=== PATIENT | male | born 1975 | race Two or more races ===

== ENCOUNTER 2018-02-03 13:34 | Emergency (ER) | payer SELFPAY ==
[~2018-02-03] VITALS: Ht 167.6 cm; Wt 95.0 kg
[2018-02-03 13:38] VITALS: BP 171/102; PULSE 111; RESP 16; TEMP 98.3; O2SAT 98
--- NOTE | 2018-02-03 14:21 | PD ---
HPI Chief Complaint: Hypertension Time Seen by Provider: 14:07 Travel History International Travel<30 days: No Contact w/Intl Traveler<30days: No Traveled to known affect area: No History of Present Illness HPI 42-year-old male presents emergency department with history of hypertension, and need for refill of his lisinopril. Patient states he was started on lisinopril 5 mg once daily for 6 weeks ago, and he took his last one today. He is noted to have blood pressure 170/100 today. He denies headache or other symptoms. He has no other acute medical complaints. He denies allergies to medications. He has no local primary care physician. [facility] Social History Alcohol Use: Yes Tobacco Use: No Substance Use: No Review of Systems Except as stated in HPI: all other systems reviewed are Neg General / Constitutional: No: Fever Eyes: No: Visual changes HENT: No: Headaches Cardiovascular: No: Chest Pain or Discomfort Respiratory: No: Shortness of Breath Gastrointestinal: No: Abdominal Pain Genitourinary: No: Dysuria Musculoskeletal: No: Pain Skin: No Rash Neurologic: No: Weakness Psychiatric: No: Depression Endocrine: No: Polydipsia Hematologic/Lymphatic: No: Easy Bruising Physical Exam Narrative GENERAL: Patient is in no acute distress. SKIN: Warm and dry. Normal color. Normal turgor. HEAD: Atraumatic. Normocephalic. EYES: Pupils equal and round. No scleral icterus. No injection or drainage. ENT: No nasal bleeding or discharge. Mucous membranes pink and moist. NECK: Trachea midline. Supple and nontender. CARDIOVASCULAR: Regular rate and rhythm. RESPIRATORY: No accessory muscle use. Clear to auscultation. Breath sounds equal bilaterally. MUSCULOSKELETAL: Extremities without clubbing, cyanosis, or edema. No obvious deformities. NEUROLOGICAL: Awake and alert. No obvious cranial nerve deficits. Motor grossly within normal limits. Five out of 5 muscle strength in the arms and legs. Normal speech. PSYCHIATRIC: Appropriate mood and affect; insight and judgment normal. Data Data Last Documented VS Vital Signs Date Time Temp Pulse Resp B/P (MAP) Pulse Ox O2 Delivery O2 Flow Rate FiO2 02/03/18 13:38 98.3 111 16 171/102 (125) 98 MDM Medical Decision Making Medical Screen Exam Complete: Yes Emergency Medical Condition: Yes Differential Diagnosis Hypertension. Need for medication. Need for primary care. Narrative Course Medical workup is not felt warranted based on my history and physical. Patient is given a refill of lisinopril 10 mg daily #30 with 2 refills. Patient is referred to [facility] for follow-up. Diagnosis Primary Impression: Encounter for medication refill Additional Impression: Hypertension Qualified Codes: I10 - Essential (primary) hypertension Referrals: [facility] call for appointment Patient Instructions: General Instructions Med/Other Pt SpecificInfo: Prescription(s) given Disposition: DISCHARGE HOME Condition: Stable Mario Berger Feb 03, 2018 14:21
[2018-02-03] MEDS ORDERED: LISI-519 PO (14:27)
[2018-02-03 14:32] VITALS: BP 173/100
[2018-02-03] MEDS ORDERED: LISI10TA3 PO (14:48)
== END 2018-02-03 15:04 | disposition home or self-care (01) ==
LOC: NEPD 13:34
DX: Z76.0 Encounter for issue of repeat prescription (principal); I10 Essential (primary) hypertension
CPT/HCPCS: 99282

== ENCOUNTER 2018-02-03 17:39 | Emergency (ER) | payer SELFPAY ==
[~2018-02-03] VITALS: Ht 165.1 cm; Wt 99.0 kg
[~2018-02-03 17:39] MED LIST: LISI-519 PO; LISI10TA3 PO
[2018-02-03 17:55] VITALS: BP 189/94; PULSE 121; RESP 20; TEMP 99.5; O2SAT 97
--- NOTE | 2018-02-03 18:11 | PD ---
HPI Chief Complaint: Hypertension Time Seen by Provider: 18:05 Travel History International Travel<30 days: No Contact w/Intl Traveler<30days: No Traveled to known affect area: No History of Present Illness HPI 42-year-old male previously seen by myself earlier today with request for blood pressure refill, returns with question and worry about hypertension. Patient states no significant headache but he feels anxious. It is noted as blood pressure is somewhat elevated compared to previous visit. He denies significant headache, nausea, vomiting, denies activities which way of caused his blood pressure to elevate. Patient was given a refill of his lisinopril 10 mg daily which he took earlier. Blood pressure currently is 189/94. Pulse is somewhat tacky at 121. Patient has no known drug allergies. PFSH Past Medical History Hypertension: Yes Social History Alcohol Use: Yes Tobacco Use: No Substance Use: No Allergies-Medications (Allergen,Severity, Reaction): Coded Allergies: No Known Allergies (Unverified , 02/03/18) Reported Meds & Prescriptions Reported Meds & Active Scripts Active Lisinopril 10 Mg Tab 10 Mg PO DAILY Reported Lisinopril 5 Mg Tab 5 Mg PO DAILY Review of Systems Except as stated in HPI: all other systems reviewed are Neg General / Constitutional: No: Fever Eyes: No: Visual changes HENT: No: Headaches Cardiovascular: No: Chest Pain or Discomfort Respiratory: No: Shortness of Breath Gastrointestinal: No: Abdominal Pain Genitourinary: No: Dysuria Musculoskeletal: No: Pain Skin: No Rash Neurologic: No: Weakness Psychiatric: No: Depression Endocrine: No: Polydipsia Hematologic/Lymphatic: No: Easy Bruising Physical Exam Narrative GENERAL: Patient appears anxious but otherwise in no acute distress SKIN: Warm and dry. Normal color. Normal turgor HEAD: Atraumatic. Normocephalic. EYES: Pupils equal and round. No scleral icterus. No injection or drainage. ENT: No nasal bleeding or discharge. Mucous membranes pink and moist. NECK: Trachea midline. No JVD. Supple and nontender per CARDIOVASCULAR: Tachycardic rate and normal rhythm. No murmurs gallops or rubs. RESPIRATORY: No accessory muscle use. Clear to auscultation. Breath sounds equal bilaterally. GASTROINTESTINAL: Abdomen soft, non-tender, nondistended. Hepatic and splenic margins not palpable. MUSCULOSKELETAL: Extremities without clubbing, cyanosis, or edema. No obvious deformities. NEUROLOGICAL: Awake and alert. No obvious cranial nerve deficits. Motor grossly within normal limits. Five out of 5 muscle strength in the arms and legs. Normal speech. PSYCHIATRIC: Appropriate mood and affect; insight and judgment normal. Data Data Last Documented VS Vital Signs Date Time Temp Pulse Resp B/P (MAP) Pulse Ox O2 Delivery O2 Flow Rate FiO2 02/03/18 18:25 112 18 148/84 (105) 99 Room Air 151/82 (105) 02/03/18 17:55 99.5 Orders Orders Basic Metabolic Panel (Bmp) (02/03/18 18:07) Complete Blood Count With Diff (02/03/18 18:07) Iv Access Insert/Monitor (02/03/18 18:07) Ecg Monitoring (02/03/18 18:07) Oximetry (02/03/18 18:07) Sodium Chloride 0.9% Flush (Ns Flush) (02/03/18 18:15) Electrocardiogram (02/03/18 ) Clonidine (Catapres) (02/03/18 18:15) Acetaminophen (Tylenol) (02/03/18 18:45) Labs Laboratory Tests Test 02/03/18 18:30 [facility] Medical Decision Making Medical Screen Exam Complete: Yes Emergency Medical Condition: Yes Medical Record Reviewed: Yes Differential Diagnosis Hypertension. Anxiety. Tachycardia. Narrative Course Patient appears medically stable at time of exam. EKG shows sinus tachycardia without significant ST changes. Patient's blood pressure improved after blood is taken to 150/84. Labs ordered including CBC and BMP. Clonidine was ordered but then canceled due to the patient's improved blood pressure. Patient is felt to be stable for discharge pending labs. Patient to continue lisinopril as previous and follow-up with [facility] as planned. Diagnosis Primary Impression: Hypertension Qualified Codes: I10 - Essential (primary) hypertension Additional Impression: Anxiety Patient Instructions: 2 Gram Sodium Diet (GEN), General Instructions Med/Other Pt SpecificInfo: No Change to Meds Disposition: 01 DISCHARGE HOME Condition: Stable Mario Berger Feb 03, 2018 18:11
[2018-02-03] MEDS ORDERED: SODIUM CHLORIDE 0.9% FLUSH 10 ML FLUSH IV FLUSH PRN (18:15)
[2018-02-03] MEDS ORDERED: cloNIDine HCL 0.1 MG TAB PO ONE (18:15)
[2018-02-03 18:25] VITALS: BP_SYST 148; BP_SYST 151; BP_DIAS 82; BP_DIAS 84; PULSE 112; RESP 18; O2SAT 99
[2018-02-03] MEDS ORDERED: ACETAMINOPHEN 500 MG CPLT PO ONE (18:45)
[2018-02-03 18:50] LABS: AUTOMATED NEUTROPHIL # 8.2 TH/MM3 (1.8-7.7); BASOPHIL % 0.4 % (0.0-2.0); EOSINOPHIL % 0.5 % (0.0-4.0); HEMATOCRIT 44.9 % (39.0-51.0); HEMOGLOBIN 15.3 GM/DL (13.0-17.0); LYMPH % 11.7 % (9.0-44.0); LYMPHOCYTE # 1.2 TH/MM3 (1.0-4.8); MEAN CELL VOLUME 83.2 FL (80.0-100.0); MEAN CORPUSCULAR HEMOGLOBIN 28.3 PG (27.0-34.0); MEAN PLATELET VOLUME 7.9 FL (7.0-11.0); MONO % 6.8 % (0.0-8.0); MONOCYTE # 0.7 TH/MM3 (0-0.9); NEUT % 80.6 % (16.0-70.0); PLATELET COUNT 279 TH/MM3 (150-450); RED CELL DISTRIBUTION WIDTH 13.3 % (11.6-17.2); WHITE BLOOD COUNT 10.2 TH/MM3 (4.0-11.0)
[2018-02-03 19:17] LABS: BICARBONATE 25.4 MEQ/L (21.0-32.0); CALCIUM 9.3 MG/DL (8.5-10.1); CREATININE 0.77 MG/DL (0.60-1.30)
--- NOTE | 2018-02-03 20:17 | PD ---
Physical Exam Narrative I, Dr. Strickland, have reviewed the advance practice practitioner's documentation and am in agreement, met with the patient face to face, made the diagnosis, and the medical decision making was done by me. *My assessment and Findings: Hypertension 42yo M with c/o elevated blood pressure. BP initially was 189/94. Repeat BP is 148/84 so clonidine was not given. Labs reviewed, no leukocytosis. H/H normal. BMP unremarkable. Creatinine is normal. HR is 98bpm. Return precautions given. Data Data Last Documented VS Vital Signs Date Time Temp Pulse Resp B/P (MAP) Pulse Ox O2 Delivery O2 Flow Rate FiO2 02/03/18 20:41 02/03/18 20:21 97.6 90 20 97 02/03/18 18:25 Room Air Orders Orders Basic Metabolic Panel (Bmp) (02/03/18 18:07) Complete Blood Count With Diff (02/03/18 18:07) Iv Access Insert/Monitor (02/03/18 18:07) Ecg Monitoring (02/03/18 18:07) Oximetry (02/03/18 18:07) Sodium Chloride 0.9% Flush (Ns Flush) (02/03/18 18:15) Electrocardiogram (02/03/18 ) Clonidine (Catapres) (02/03/18 18:15) Acetaminophen (Tylenol) (02/03/18 18:45) Ed Discharge Order (02/03/18 20:17) Labs Laboratory Tests Test 02/03/18 18:30 White Blood Count 10.2 TH/MM3 Red Blood Count 5.40 MIL/MM3 Hemoglobin 15.3 GM/DL Hematocrit 44.9 % Mean Corpuscular Volume 83.2 FL Mean Corpuscular Hemoglobin 28.3 PG Mean Corpuscular Hemoglobin Concent 34.0 % Red Cell Distribution Width 13.3 % Platelet Count 279 TH/MM3 Mean Platelet Volume 7.9 FL Neutrophils (%) (Auto) 80.6 % Lymphocytes (%) (Auto) 11.7 % Monocytes (%) (Auto) 6.8 % Eosinophils (%) (Auto) 0.5 % Basophils (%) (Auto) 0.4 % Neutrophils # (Auto) 8.2 TH/MM3 Lymphocytes # (Auto) 1.2 TH/MM3 Monocytes # (Auto) 0.7 TH/MM3 Eosinophils # (Auto) 0.0 TH/MM3 Basophils # (Auto) 0.0 TH/MM3 CBC Comment DIFF FINAL Differential Comment Blood Urea Nitrogen 13 MG/DL Creatinine 0.77 MG/DL Random Glucose 146 MG/DL Calcium Level 9.3 MG/DL Sodium Level 136 MEQ/L Potassium Level 3.6 MEQ/L Chloride Level 103 MEQ/L Carbon Dioxide Level 25.4 MEQ/L Anion Gap 8 MEQ/L Estimat Glomerular Filtration Rate 110 ML/MIN MDM Supervised Visit with MAU: Yes Diagnosis Primary Impression: Hypertension Qualified Codes: I10 - Essential (primary) hypertension Additional Impression: Anxiety Patient Instructions: General Instructions, 2 Gram Sodium Diet (GEN) Disposition: DISCHARGE HOME Condition: Stable Caitlin Strickland DO Feb 03, 2018 20:17
[2018-02-03 20:21] VITALS: BP 156/68; PULSE 90; RESP 20; TEMP 97.6; O2SAT 97
--- NOTE | 2018-02-04 17:44 | EKG ---
Date Performed: 02/03/2018 Time Performed: 18:31:50 PTAGE: 42 years EKG: SINUS TACHYCARDIA ABNORMAL RHYTHM ECG NO PREVIOUS TRACING DOCTOR: Sandra Manuel Interpretating Date/Time 02/04/2018 17:42:12
== END 2018-02-03 20:41 | disposition home or self-care (01) ==
LOC: NED 17:39 → NEPD 20:41
DX: I10 Essential (primary) hypertension (principal); F41.9 Anxiety disorder, unspecified; R00.0 Tachycardia, unspecified
CPT/HCPCS: 80048; 85025; 93005; 99284